=== PATIENT | male | born 1970 | race Caucasian/White ===

== ENCOUNTER 2024-05-22 21:47 | Emergency (ER) | payer OTHER | END 2024-05-23 00:38 | disposition home or self-care (01) | LOC: JD.ED 21:47 | DX: J06.9 Acute upper respiratory infection, unspecified (principal); B34.9 Viral infection, unspecified; Z86.16 Personal history of COVID-19 | CPT/HCPCS: 71045; 71045-26; 87428-QW; 87651-QW; 99283 ==